=== PATIENT | female | born 1970 | race Asian ===

== ENCOUNTER → 2019-02-13 | Outpatient (CLI) | payer OTHER ==
[~2019-02-13] MED LIST: HYDROCODON-ACE1 EAC7 PO; JANUVIA100 MG PO; LOVASTATIN 20 M20 MG PO; METFORMIN HCL500 MG PO; SINGULAIR 10 MG10 M1 PO; ZANAFLEX2 MG PO
--- NOTE | ~2019-02-13 | PAINCON ---
[address] [address] PAIN MANAGEMENT CONSULTATION Name: SHANELL DELGADO [facility] MELLISADuane Winter#: [id number] Admission: 02/13/19 Attend Phys: Tom Linda MD Discharge: Date of : 74 Report #: [id number] THIS REPORT FOR: //name// CC: Tom Piedra DATE OF SERVICE: 02/13/2019 CHIEF COMPLAINT: "Cervical radiculopathy, I have noticed increased pain over the last few months." HISTORY: The patient is a 49-year-old female who has been seen in the Pain Clinic because of cervical radiculopathy. She underwent cervical epidural steroid injection in the past. She gleaned benefits from that. She has noticed worsening of her pain. It has returned and she rates it as a 9-10 pain. It involves primarily her right side. She notes pain and discomfort in her shoulder as well as headache pain. She received good relief after the last injection. Over the last few months, her pain has worsened. She has been somewhat reluctant to return, these injections make her nervous. She notes that the pain is worse when she is working with her hands. Use of massage has been helpful. ALLERGIES: PENICILLIN. CURRENT MEDICATIONS: Mevacor 20 mg, Glucophage 500 mg, Singulair 10 mg, Januvia 100 mg, and Zanaflex 2 mg q. eight hours p.r.n., the patient only takes this on the weekend. PAIN CLINIC ASSESSMENT/PQRS: 1. The patient is not being treated for osteoarthritis or rheumatoid arthritis. 2. Height 5 feet, weight 124 pounds, BMI is 24.3. 3. Blood pressure 120/72, heart rate 81, respiratory rate 16, room air saturation 99%, temperature is 98. 4. Pain intensity: 7-9/10. 5. Blood thinner: The patient is not on a blood thinning medication. 6. Hypertension: The patient is being treated for hypertension. 7. Opioids greater than 6 weeks: The patient is not on opioid regimen. 8. Risk assessment tool: Low for opioid use. 9. Functional assessment tool. 10. Recreational drug use: The patient denies use of recreational drugs. 11. Tobacco: The patient denies use of tobacco. 12. Alcohol: The patient denies use of alcoholic beverages. PHYSICAL EXAMINATION: GENERAL: The patient is a well-developed, well-nourished female. She appears her stated age. She is alert and oriented[place] [address] PAIN MANAGEMENT CONSULTATION Name: PoojaSHANELL HUSTON TABReal [facility] Room: [facility]#: [id number] Admission: 02/13/19 Attend Phys: Tom Linda MD Discharge: Date of : 74 Report #: [id number] is fluent. It appears American is her second language. HEENT: Normocephalic, atraumatic. Extraocular eye muscles intact. Sclerae nonicteric. Mucous membranes are moist. NECK: Without adenopathy or JVD. The patient has pain and discomfort in the right neck area with pain that radiates down into her arm. She has pain that radiates down into her right shoulder as well as some pain up into the neck area. HEART: Regular rate. ABDOMEN: Nontender. Bowel sounds present. EXTREMITIES: Upper extremity muscle strength is judged to be 5- for the left side and 4+ for the right side. Lower extremities: The patient is without sensory changes. MUSCULOSKELETAL: The patient without significant scoliosis, kyphosis, or lordosis. IMPRESSION: 1. Cervical pain with radiculopathy down into the right arm. 2. Cervical radiculopathy, which has improved with epidural steroid injection in the past. 3. Asthma. 4. Hypercholesterolemia. 5. History of shingles. 6. Diabetes. RECOMMENDATIONS: We discussed treatment options with the patient. Risks and benefits of a cervical epidural steroid injection were again reviewed. Possible complications of the procedure which could include but are not limited to infection, worsening of pain, no improvement in pain, bleeding, nerve damage, paralysis. The patient elects to proceed. PROCEDURE NOTE: The patient was taken to the procedure area. She was placed on the table in prone position. Fluoroscopy was used to observe and place the needle. Anterior, posterior as well as lateral viewing were implemented. The patient's neck was sterilely prepped with a Betadine solution and allowed to dry. A 25-gauge needle was then injected at the C7-T1 interspace. This area was numbed. An 18-gauge Tuohy was then used to gain access to the epidural space at C7-T1. Aspiration was negative. A total of 120 mg triamcinolone was injected. The patient tolerated the procedure well. There were no complications. She remained in the Pain Clinic for an [place] [address] PAIN MANAGEMENT CONSULTATION Name: SHNAELL DELGADO Room: [facility]#: [id number] Admission: 02/13/19 Attend Phys: Tom Linda MD Discharge: Date of : 74 Report #: [id number] We would like to thank you for letting us participate in her care. We hope she continues to improve. By: [id number]. Chucky Linda MD /nt
== END | disposition home or self-care (01) ==
LOC: M.PC 12:30
DX: M54.12 Radiculopathy, cervical region (principal); G89.29 Other chronic pain; E78.00 Pure hypercholesterolemia, unspecified; E11.9 Type 2 diabetes mellitus without complications; I10 Essential (primary) hypertension; Z98.890 Other specified postprocedural states; Z88.0 Allergy status to penicillin; Z79.899 Other long term (current) drug therapy

== ENCOUNTER → 2019-06-05 | Outpatient (CLI) | payer OTHER ==
--- NOTE | ~2019-06-05 | PAINCON ---
[address] [address] PAIN MANAGEMENT CONSULTATION Name: SHANELL DELGADO Room: [facility] MEGHAN OsheaJan#: [id number] Admission: 06/05/19 Attend Phys: Tom Linda MD Discharge: Date of : 74 Report #: [id number] THIS REPORT FOR: //name// CC: Tom Piedra MD DATE OF SERVICE: 06/05/2019 CHIEF COMPLAINT: Return of neck pain. HISTORY: The patient is a 49-year-old female. She has been seen in the Pain Clinic because of cervical radiculopathy. She has undergone epidural steroid injections and found them helpful. At this juncture, she has noticed a recurrence of pain and discomfort. She rates it as a 4-5. Notes some problem in her right neck with pain radiating down the shoulder to the arm into the forearm with tingling in her fingers. She occasionally has dropped items. She also notes some increased pain in the low back and lumbar area. She has not noticed a significant problem with her blood sugars in the past. She does have diabetes. She states that she will monitor this. She has returned today with hopes of undergoing a cervical epidural steroid injection. She notes that the pain is worse with activities of daily living. It improves somewhat with massage. She has had chiropractic treatment. This helped for a few days. The pain now continues to be problematic and she has returned for an injection. She has used tizanidine help with muscle spasms at bedtime. ALLERGIES: PENICILLIN. CURRENT MEDICATIONS: Mevacor 20 mg, Glucophage 500 mg, Singulair 10 mg, Januvia 100 mg, Zanaflex 2 mg q. 8 hours p.r.n. PAIN CLINIC ASSESSMENT/PQRS: 1. The patient is not being treated for osteoarthritis or rheumatoid arthritis. 2. Height 5 feet 0 inches, weight 119 pounds, BMI is 23.4. 3. Blood pressure 107/77, heart rate 82, respiratory rate 16, room air saturation 96%, temperature 98.2. 4. Pain intensity is 4-5/10. 5. Fall risk. The patient has not fallen. 6. Blood thinner. The patient is not on a blood thinning medication. 7. Hypertension. The patient has not been treated for hypertension. 8. Opioids greater than 6 weeks. The patient is not on opioid regimen on a regular basis. 9. Risk assessment tool. Low for opioid use. 10. Functional assessment tool. 11. Recreational drug use. The patient denies use of tobacco. 12. Alcohol: The patient [place] [address] PAIN MANAGEMENT CONSULTATION Name: SHANELL DELGADO [id number] Admission: 06/05/19 Attend Phys: Tom Linda MD Discharge: Date of : 74 Report #: [id number] 13. Recreational drugs. The patient denies use of recreational drugs. PHYSICAL EXAMINATION: GENERAL: The patient is a well-developed, well-nourished female. Appears her stated age. She is alert and oriented x 3. Her affect is appropriate. Speech is fluent. HEENT: Normocephalic, atraumatic. Extraocular eye muscles intact. Sclerae nonicteric. Mucous membranes are moist. NECK: Without adenopathy or JVD. The patient has some pain and discomfort in the neck area with pain that is radiating down the right shoulder down to the forearm involving her fingers with numbness and tingling. Has perception of some decreased muscle and legal practice manager strength. HEART: Regular rate. S1, S2. ABDOMEN: Nontender. Bowel sounds present. EXTREMITIES: Upper extremity muscle strength is judged to be 5-/5 on the left and 5-/5 on the right or 4+ on the right. Lower extremity muscle strength without sensory changes is 5/5. The patient is without significant scoliosis, kyphosis or lordosis. IMPRESSION: 1. Cervical radiculopathy with pain radiating down the right arm. 2. Cervical radiculopathy improved after epidural steroid injection in the past. 3. Asthma. 4. Hypercholesterolemia. 5. History of shingles. 6. Diabetes. RECOMMENDATIONS: We discussed treatment options with the patient. Risks and benefits of a cervical epidural steroid injection were discussed. They include but are not limited to infection, worsening pain, no improvement in pain, nerve damage, paralysis, spinal headache and the patient elects to proceed. PROCEDURE NOTE: The patient was taken to the procedure room. She was then assisted in getting on the examination table. Her back was sterilely prepped with a Betadine solution in the cervical area. Fluoroscopy using anterior, posterior as well as lateral viewing were implemented. The C7-T1 interspace was then infiltrated with 0.25% bupivacaine using a 25-gauge needle. A 17-gauge Tuohy with loss of resistance technique was then used to advance into the area of the epidural space. There was no CSF, heme or paresthesia. Aspiration was negative. A total of 120 mg triamcinolone was injected. The patient tolerated the procedure well. There were no complications. She remained in the Pain Clinic for an appropriate amount of time. We will follow up in the future. A total of 12 seconds fluoroscopy time was used. [facility] [address] [place] [address] PAIN MANAGEMENT CONSULTATION Name: SHANELL DELGADO Room: [facility]#: [id number] Admission: 06/05/19 Attend Phys: Tom Linda MD Discharge: Date of : 74 Report #: [id number] We would like to thank you for letting us participate in her care. We hope she continues to improve. By: [id number]. Chucky Linda MD /nt
== END | disposition home or self-care (01) ==
LOC: M.PC 05:13
DX: M54.12 Radiculopathy, cervical region (principal); G89.29 Other chronic pain; E11.9 Type 2 diabetes mellitus without complications; E78.00 Pure hypercholesterolemia, unspecified; J45.909 Unspecified asthma, uncomplicated; Z98.890 Other specified postprocedural states; Z79.891 Long term (current) use of opiate analgesic; Z88.0 Allergy status to penicillin; Z79.899 Other long term (current) drug therapy

== ENCOUNTER → 2019-09-25 | Outpatient (CLI) | payer OTHER ==
[~2019-09-25] MED LIST changes: +LIORESAL 10 MG10 MG PO
--- NOTE | 2019-10-08 13:25 | PAINCON ---
[address] [address] PAIN MANAGEMENT CONSULTATION Name: SHANELL DELGADO Room: [facility] ME[facility]AN DumontAstrid#: [id number] Admission: 09/25/19 Attend Phys: Tom Linda MD Discharge: Date of : 74 Report #: [id number] THIS REPORT FOR: //name// CC: Tom Piedra MD DATE OF SERVICE: 09/25/2019 CHIEF COMPLAINT: Return of neck pain down into the arm. HISTORY: The patient is a 49-year-old female who has been seen in the pain clinic because of cervical radiculopathy. She has undergone epidural steroid injections in the past and gleaned benefits from these. She returns today indicating that she is having more pain in the right arm. It is radiating down into her shoulder. She has returned to the pain clinic with the hopes of undergoing another cervical epidural steroid injection. Her pain is a 10/10. She feels that the muscle relaxant medications, tizanidine makes her feel somewhat sleepy. She would like to try another option. She has not had any complications from the last injection. She has noted benefits from them. ALLERGIES: PENICILLIN. CURRENT MEDICATIONS: Mevacor 20 mg, Glucophage 500 mg, Singulair 10 mg, Januvia 100 mg, Zanaflex 2 mg, hydrocodone 10/325 on rare occasion. PAIN CLINIC ASSESSMENT/PQRS: 1. The patient is not being treated for osteoarthritis or rheumatoid arthritis. 2. Height 5 feet, 0 inches, weight 124 pounds, BMI is 24.2. 3. Vital Signs: Blood pressure 127/18, heart rate 84, respiratory rate 16, room air saturation is 99%, temperature 97.8. 4. Pain score 9/10. 5. Fall risk. The patient has not fallen in the last 3 months. 6. Blood thinner. The patient is not on a blood thinning medication. 7. Hypertension. The patient is not being treated for hypertension. 8. Opioids greater than 6 weeks. The patient is not on an opioid regimen on a regular basis. 9. Risk assessment tool, low for opioid use. 10. Functional assessment tool. 11. Tobacco. 12. The patient denies use of alcohol. 13. Recreational drugs. The patient denies use of recreational drugs. PHYSICAL EXAMINATION: GENERAL: The patient is a well-developed, well-nourished female. Appears her stated age. She is alert and oriented x 3. [place] [address] PAIN MANAGEMENT CONSULTATION Name: SHANELL DELGADO [facility] Room: [facility]#: [id number] Admission: 09/25/19 Attend Phys: Tom Linda MD Discharge: Date of : 74 Report #: [id number] Speech is fluent. HEENT: Normocephalic, atraumatic. Extraocular eye muscles intact. Sclerae nonicteric. Mucous membranes are moist. NECK: Without adenopathy or JVD. She has some discomfort in her neck with pain that radiates down to the right shoulder down into her arm and into her fingers with numbness and tingling. HEART: Regular rate. S1, S2. ABDOMEN: Nontender. Bowel sounds present. EXTREMITIES: Upper extremity muscle strength judged to be 5/5 for the major muscle groups in the left upper extremity and 5-/5 for the major muscle groups on the right. Lower extremity muscle strength judged to be 5/5 for the major muscle groups in the lower extremity without significant scoliosis, kyphosis or lordosis. IMPRESSION: 1. Cervical radiculopathy with pain radiating down to the right arm. 2. Cervical radiculopathy, improved after epidural steroid injection in the past. 3. Asthma. 4. Hypercholesterolemia. 5. History of shingles. 6. Diabetes. RECOMMENDATIONS: We discussed treatment options with the patient. Risks and benefits of a cervical injection were again discussed. They include, but are not limited to infection, worsening pain, no improvement in pain, bleeding, nerve damage and the patient elects to proceed. PROCEDURE NOTE: The patient was taken to the procedure area. She was then assisted in getting on examination table. Her back was sterilely prepped with a Betadine solution. A 0.25% bupivacaine at the C1 to C7/T1 interspace was identified. This area was anesthetized with 0.25% bupivacaine. A 17-gauge Tuohy with loss of resistance technique was used to gain access to the epidural space. Fluoroscopy using anterior as well as lateral viewing were implemented. After appropriate placement of medicine at the C7-T1 interspace, the patient was then taken to the recovery room. She remained in the recovery room for an appropriate amount of time. The patient received a total of 120 mg of triamcinolone. A script for baclofen 10 mg one p.o. t.i.d. has been provided. The patient will see whether or not she is able to tolerate this with less problems with somnolence. She will also be provided 30 tablets of 5 mg hydrocodone to help with the pain during the convalescent period. She will return to the chiropractor [place] [address] PAIN MANAGEMENT CONSULTATION Name: SHANELL DELGADO Room: [facility]#: [id number] Admission: 09/25/19 Attend Phys: Tom Linda MD Discharge: Date of : 74 Report #: [id number] We would like to thank you for letting us participate in her care. We hope she continues to improve. <ELECTRONICALLY SIGNED> By: Tom Linda MD 10/08/19 1325 [id number]. Chucky Linda MD /nt
== END | disposition home or self-care (01) ==
LOC: M.PC 05:07
DX: M54.2 Cervicalgia (principal); M54.12 Radiculopathy, cervical region; E11.9 Type 2 diabetes mellitus without complications; J45.909 Unspecified asthma, uncomplicated; E78.00 Pure hypercholesterolemia, unspecified; Z98.890 Other specified postprocedural states; Z88.0 Allergy status to penicillin; Z79.891 Long term (current) use of opiate analgesic; Z79.899 Other long term (current) drug therapy